=== PATIENT | female | born 1950 | race Hispanic/Latino ===

== ENCOUNTER 2018-01-08 12:19 | Outpatient (CLI) | payer MEDICARE ==
[2018-01-08 13:10] LABS: Blood Urea Nitrogen 13 mg/dL (7-17)
--- NOTE | 2018-01-09 14:36 | Cat Scan Report ---
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 Reformatted sagittal and coronal images were available for review. 3D reconstruction of the vascular structures was also performed. FINDINGS: Vasculature: There is an aorto -SMA graft which is patent. There is a superior mesenteric arterial stent which is also patent. The bilateral renal arteries remain patent. There is occlusion of the [place] distal aorta and proximal aspects of the [place] common iliac arteries. Again seen is an aorto bi femoral graft which appears patent. There is mild thickening around the graft. There has been interval resolution of the previously seen perigraft fluid collections. There is collateral flow in the [place] internal and external iliac arteries via the graft. There is plaque at the origin of the right common femoral artery with some mild narrowing. The right superficial femoral artery and profunda branches are patent and normal in caliber. The right popliteal artery is patent and normal in caliber. There is triple-vessel flow into the ankle. The dorsalis pedis and distal posterior tibial artery are patent. The left common femoral artery is patent and normal in caliber. The left superficial femoral artery and popliteal artery are patent and normal in caliber. There is triple-vessel flow into the ankle. The dorsalis pedis artery and distal posterior tibial arteries are patent. Lung bases: Normal. Visualized heart and mediastinum: Normal. Liver: Normal. Spleen: Normal. Pancreas: Normal. Gallbladder and Biliary Tree: The gallbladder has been surgically removed. Again seen is mild dilatation of the common bile duct, measuring up to 1.3 centimeters in diameter. Adrenal glands: Normal. Kidneys: Simple appearing 6 millimeter cortical cyst of the right kidney. Simple appearing 6 millimeter cortical cyst of the left kidney. No hydronephrosis. Bladder: Normal. Pelvic organs: Normal. Bowel: No evidence of obstruction. No focal wall thickening. Diverticulosis of the descending and sigmoid colon without evidence of diverticulitis. Peritoneum: No significant mesenteric adenopathy. No free air or free fluid. Bones and soft tissues: No suspicious osseous lesions. No acute fracture or dislocation. There is a midline abdominal scar. The soft tissues are otherwise normal. IMPRESSION: 1. Patent aorto -superior mesenteric artery graft and patent superior mesenteric artery stent. 2. 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 3. Atherosclerotic plaque at the origin of the right common femoral artery with some mild narrowing, with less than 50 percent stenosis. 4. Patent vasculature to the bilateral lower extremities. 5. Mild dilatation of the common bile duct measuring up to 1.3 centimeters in diameter, stable since the previous study. No intraluminal mass or stone is visualized. 6. Simple appearing cysts of the bilateral kidneys. 7. Diverticulosis of the descending and sigmoid colon without evidence of diverticulitis.
== END 2018-01-08 12:20 | disposition home or self-care (01) ==
LOC: CT 12:19
PROVIDERS: ATTEND Surgery Vascular Surgery
DX: I70.213 Atherosclerosis of native arteries of extremities with intermittent claudication, bilateral legs (principal); I10 Essential (primary) hypertension; M19.90 Unspecified osteoarthritis, unspecified site; C50.919 Malignant neoplasm of unspecified site of unspecified female breast; I70.0 Atherosclerosis of aorta; K57.30 Diverticulosis of large intestine without perforation or abscess without bleeding; N28.1 Cyst of kidney, acquired; I73.9 Peripheral vascular disease, unspecified; E46 Unspecified protein-calorie malnutrition; K55.1 Chronic vascular disorders of intestine; K21.9 Gastro-esophageal reflux disease without esophagitis; Z82.49 Family history of ischemic heart disease and other diseases of the circulatory system
CPT/HCPCS: 36415; 75635; 82565; 84520; Q9967

== ENCOUNTER 2019-01-06 12:51 | Outpatient (CLI) | payer MEDICARE ==
--- NOTE | 2019-01-07 13:02 | Mammography Report ---
BONE DEXA:01/06/19 12:51:00 CLINICAL: Postmenopausal. No comparison. TECHNIQUE: Two site bone DEXA performed on an Hologic scanner. FINDINGS: The average BMD of the lumbar spine L1-L4 is 0.799g/cm squared with a T-score of -2.3 and a Z-score of - 0.1. The average BMD of the left hip is 0.764g/cm squared with a T-score of -1.5 and a Z-score of +0.1. The left femoral neck BMD is 0.589g/cm squared with a T score of -2.3 and a Z score of -0.5. IMPRESSION: WHO classification: Osteopenia with increased fracture risk based on both lumbar spine and left hip measurements. RECOMMENDATION: Clinical correlation and routine screening. DEFINITIONS: BMD = Bone Mineral Density T-score = BMD related to mean peak bone mass of young adult (mean expressed in Standard Deviation) Z-score = Age matched BMD expressed in SD World Health Organization (WHO) Diagnostic Criteria Normal T-score > -1 SD Osteopenia T-score between -1 and -2.4 SD Osteoporosis T-score -2.5 SD or below NOTE: BMD is not the only risk factor for fracture. One should also consider factors such as the patient's age, risk of falling, previous osteoporotic fracture, family history of osteoporotic fractures, current smoker, and low body weight. Z-scores are not calculated if >80 years of age.
== END 2019-01-06 12:52 | disposition home or self-care (01) ==
LOC: SPVWC 12:51
PROVIDERS: ATTEND Internal Medicine
DX: M85.88 Other specified disorders of bone density and structure, other site (principal); E78.00 Pure hypercholesterolemia, unspecified; I10 Essential (primary) hypertension; K21.9 Gastro-esophageal reflux disease without esophagitis; Z78.0 Asymptomatic menopausal state
CPT/HCPCS: 77080